=== PATIENT | male | born 1985 | race Two or more races ===

== ENCOUNTER 2020-08-04 08:00 | Outpatient (CLI) | payer OTHER | END 2020-08-04 15:00 | disposition home or self-care (01) | LOC: PPH VACUNA 08:00 | DX: Z23 Encounter for immunization (principal) ==

== ENCOUNTER → 2021-08-26 11:00 | Outpatient (CLI) | payer OTHER | END | disposition home or self-care (01) | LOC: PPH VACUNA 11:00 | PROVIDERS: ATTEND Emergency Medicine Pediatric Emergency Medicine | DX: Z23 Encounter for immunization (principal) ==